=== PATIENT | female | born 1950 ===

== ENCOUNTER 2023-11-07 06:40 | Day surgery (SDC) | payer OTHER ==
[~2023-11-07 06:40] MED LIST: ATACAND16 MG PO; CRESTOR20 MG PO; SYNTHROID50 MCG PO
[2023-11-07] MEDS ORDERED: CIPROFLOXACIN IN 5 % DEXTROSE 400 MG/200 ML PIGGYBAG IV ONE ×2 (08:35→09:45)
[2023-11-07] MEDS ORDERED: CHLORHEXIDINE GLUCONATE 120 ML BOTTLE TOP ONE ×2 (08:57→09:45)
[2023-11-07] MEDS ORDERED: GENTAMICIN SULFATE 40 MG/ML VIAL ONE (09:34)
[2023-11-07] MEDS ORDERED: GENTAMICIN SULFATE 40 MG/ML VIAL IR ONE (09:45)
[2023-11-07] MEDS ORDERED: MACROBID 100 M100 MG PO (10:25)
[2023-11-07] MEDS ORDERED: TRAM1TAB98 PO (10:25)
== END 2023-11-07 13:50 | disposition home or self-care (01) ==
LOC: CIR.AMB 06:40 → EDBD 11:45 → CIR.AMB 11:45
PROVIDERS: ATTEND Obstetrics & Gynecology Gynecology
DX: N81.11 Cystocele, midline (principal); Z88.0 Allergy status to penicillin